=== PATIENT | male | born 1945 | race Caucasian/White ===

== ENCOUNTER → 2020-06-24 18:44 | Outpatient (ROUT) | payer MEDICARE, OTHER, SELFPAY | PROVIDERS: Visit Provider Internal Medicine | DX: R19.7 Diarrhea, unspecified (principal) | CPT/HCPCS: 87045; 87177; 87899 ==

== ENCOUNTER → 2021-04-26 13:53 | Outpatient (CLI) | payer MEDICARE, OTHER, SELFPAY ==
[2021-04-26 15:23] LABS: COVID19 -Nasal RAPID Negative (Negative)
== END ==
PROVIDERS: PCP Internal Medicine; Referring Provider Nurse Practitioner Family; Visit Provider Nurse Practitioner Family
DX: Z01.812 Encounter for preprocedural laboratory examination (principal); Z20.822 Contact with and (suspected) exposure to COVID-19
CPT/HCPCS: 87635; C9803

== ENCOUNTER 2021-04-27 11:11 | Day surgery (SDC) | payer MEDICARE, OTHER, SELFPAY ==
--- NOTE | 2021-04-27 | PATH_ITS ---
[facility] Accession Number: [id number] . 01 Material submitted: . colon - RANDOM COLON BIOPSIES . 02 Diagnosis: Random Colon, Biopsies: Colonic mucosa with no diagnostic abnormality. Negative for active, chronic, and microscopic colitis. Negative for dysplasia and malignancy. . MRV 04/29/20215 Local . 02 Electronically signed: . Dion Samaniego MD, PhD, Pathologist NPI- [id number] . 01 Gross description: . RANDOM COLON BIOPSIES: Received in formalin are 2 fragment(s) of james, soft tissue measuring 0.1 x 0.1 x 0.1 cm to 0.2 x 0.2 x 0.1 cm submitted entirely in 1 cassette(s) /CHEVY 04/28/20211955 Local . 02 Pathologist provided ICD-10: R19.7 . 02 CPT . 857051 Performed at: 01 [facility] [address], [place], [place] [id number] MD Edenilson Finch MD Phone: [phone] Performed at: [address] [facility] [address] [place], [place] [id number] MD Monika Hudson MD Phone: [phone]
[2021-04-27 11:58] VITALS: BP 153/86; PULSE 63; RESP 16; TEMP 36.8; O2SAT 97; BMI 29.8
[2021-04-27] MEDS: SODIUM CHLORIDE 0.9% 1,000 ML 84 ML IV (12:09)
--- NOTE | 2021-04-27 12:32 | PM.HP.1 ---
History of Present Illness History of Present Illness Date Patient Seen: 04/27/21 Time Patient Seen: 12:32 Chief complaint: DX COLONOSCOPY W/POSS BX Narrative: I reviewed 's note from March 23. No significant changes. Patient History Medical History Cholecystectomy planned Diabetes mellitus GERD (gastroesophageal reflux disease) Hyperlipidemia Surgical History S/P hemorrhoidectomy Family & Social History Social History: household members spouse Tobacco & Substance use: Smoking Status Never smoker alcohol intake current alcohol intake frequency a few times a week Substance Use Type does not use Meds Home Medications and Allergies Home Medications Medication Instructions Recorded Confirmed Type Imodium 1 tab PO DAILY 04/27/21 04/27/21 History metformin 1,000 mg PO DAILY 04/27/21 04/27/21 History omeprazole 20 mg PO DAILY 04/27/21 04/27/21 History rosuvastatin 20 mg PO DAILY 04/27/21 04/27/21 History Allergies Allergy/AdvReac Type Severity Reaction Status Date / Time No Known Drug Allergies Allergy Verified 04/27/21 11:44 Review of Systems Review of Systems ROS: Yes All systems reviewed with the patient and are negative except as otherwise documented Exam Vital Signs (past 8 hours): - 04/27/21 11:58 Temperature 98.2 F Pulse Rate 63 Respiratory Rate 16 Blood Pressure 153/86 H Pulse Oximetry 97 Oxygen Delivery Method Room Air Const General: cooperative and comfortable Orientation: alert HENMT Head: normocephalic Ears: external ears normal Nose: external nose normal Face and sinus: normal facial exam Eyes General: appearance normal, both eyes and all related structures Neck Neck: normal visual inspection Chest Chest: normal inspection of the chest Resp Effort & Inspection: normal respiratory effort Cardio Rate: regular rate GI Inspection: normal to inspection Skin General: no rashes or lesions noted and No jaundice Neuro General: patient alert and moves all extremities Cognition: normal cognition Speech: speech normal Extrem General: no pedal edema Psych Appearance: grossly normal Assessment & Plan Assessment & Plan narrative: 75-year-old male with chronic diarrhea unexplained. Diagnostic colonoscopy is pursued today. Time Spent With Patient Critical Care time: I spent a total of [] minutes of critical care time on this patient's care today; this time is exclusive of procedural time.
--- NOTE | 2021-04-27 14:06 | PM.OP.COLON ---
Operative Date/Time/Diagnoses Date of procedure: 04/27/21 Time of procedure: 14:06 Pre-op diagnosis: Diarrhea Post-op diagnosis: same Procedure & Clinicians Study performed: Colonoscopy with biopsies Same procedure as scheduled: Yes Indications: Diarrhea Surgeon: Dav Paredes Procedure Notes SCOAP/Timeout: Done Procedure in detail: After the risks and benefits were explained, written and verbal informed consent was obtained. The patient was brought into the procedure room and placed into the left lateral decubitus position. Please see nurse early childhood special educator notes for sedation details. Digital rectal examination was accomplished. The scope was introduced into the patient and advanced under direct visualization to the cecum as identified by the appendiceal orifice and ileocecal valve. The scope was slowly withdrawn to carefully examine the mucosa for any defects or lesions. Comprehensive imaging was accomplished throughout the rectum including the dentate line. The colon was decompressed, the scope was then removed from the patient who tolerated the procedure well. Bowel prep adequate Adult colonoscope Scope withdrawal time: 8 minutes Sedation minutes: 20 Complications: none Impression: No evidence of inflammation identified throughout. No significant polyps or mass lesions throughout. The terminal ileum was interrogated and appeared visually normal. Random colon biopsies were required for exclusion of microscopic colitis. Patient had evidence of grade 3 internal hemorrhoids. Endoscopic diagnosis 1. Grade 3 hemorrhoids 2. Otherwise visually unremarkable colonoscopy Post-procedure Plan for aftercare: 1. Await histopathology 2. Follow up GI clinic Disposition: PACU
[2021-04-27 14:10] VITALS: BP 94/52; PULSE 69; RESP 28; TEMP 36.8; O2SAT 94
[2021-04-27 14:15] VITALS: BP 121/74; PULSE 71; RESP 14; O2SAT 97
[2021-04-27 14:23] VITALS: BP 107/64; PULSE 67; RESP 15; TEMP 36.6; O2SAT 95
== END 2021-04-27 14:43 | disposition home or self-care (01) ==
PROVIDERS: PCP Internal Medicine; Referring Provider Internal Medicine Gastroenterology; Visit Provider Internal Medicine Gastroenterology
PROC: 0DJD8ZZ Inspection of Lower Intestinal Tract, Via Natural or Artificial Opening Endoscopic (ICD-10-PCS; CPT 45378; principal; 2021-04-27 13:30)
DX: R19.7 Diarrhea, unspecified (principal); E11.9 Type 2 diabetes mellitus without complications; K21.9 Gastro-esophageal reflux disease without esophagitis; E78.5 Hyperlipidemia, unspecified; Z79.84 Long term (current) use of oral hypoglycemic drugs; K64.2 Third degree hemorrhoids
CPT/HCPCS: 45380; J2704